=== PATIENT | female | born 1965 | race Caucasian/White ===

== ENCOUNTER 2018-08-02 10:50 | Emergency (ER) | payer SELFPAY ==
[2018-08-02] MEDS ORDERED: Bacitracin Zinc 1 Packet ONE (11:38)
--- NOTE | 2018-08-02 11:51 | RAD ---
RIGHT HAND 3 VIEWS: HISTORY: Bitten by a dog. COMPARISON: None. FINDINGS: No acute fracture or malalignment. Soft tissues are unremarkable. No radiopaque foreign object. IMPRESSION: No acute fracture, malalignment, or radiopaque foreign object. POS: BRET
== END 2018-08-02 11:51 | disposition home or self-care (01) ==
LOC: ERS 10:50
DX: S51.851A Open bite of right forearm, initial encounter (principal); Z79.899 Other long term (current) drug therapy; W54.0XXA Bitten by dog, initial encounter